=== PATIENT | female | born 1965 | race Caucasian/White ===

== ENCOUNTER 2024-04-28 08:37 | Emergency (ER) | payer OTHER, SELFPAY ==
[2024-04-28 09:15] VITALS: BP 123/85; PULSE 86; RESP 19; TEMP 36.8; O2SAT 99; BMI 27.3
--- NOTE | 2024-04-28 09:27 | ED_ITS ---
Discharge Plan Disposition Patient Disposition: Home, Self-Care Condition: Good Prescriptions Prescriptions: New methylprednisolone [Medrol (Ramiro)] 4 mg tablets,dose pack See Rx Instructions .Route .COMPLEX 6 Days Qty: 21 0RF Rx Instructions: taper pack; amoxicillin-pot clavulanate 875-125 mg Tablet 1 tab PO Q12H Qty: 20 0RF No Action meclizine 12.5 mg tablet 12.5 mg PO BID PRN (Reason: dizziness) 7 Days Qty: 14 0RF lisinopril 10 MG tablet 10 mg PO DAILY Referrals Follow up/Referrals: Martinez Matthews MD [Primary Care Provider] - See instructions Activity Restrictions/Add. Instructions Additional Instructions/Restrictions: Start oral steriods and antibiotic tomorrow you was given injection for your first dose Return if needed Straight to ER if any life threatening symptoms Clinical Impressions Clinical Impression: Sinusitis Qualifiers: Sinusitis location: unspecified location Chronicity: unspecified Qualified Code(s): J32.9 - Chronic sinusitis, unspecified Instructions Patient Instructions: Sinusitis, DI for Sinusitis Print Language Print Language: [place]gu[place] Discharge ED Provider: Emelina Rhodes [facility] General Stated complaint: congestion, headache Time Seen by Provider: 04/28/24 09:29 History of Present Illness Provider Complaint: Patient states that she thinks she has a bad sinus infection States that she has been having sinus congestion and pressure, pressure behind her eyes and even her teeth hurt for several weeks that has not got any better States today when it was still bothering her she came in to get checked Related Data Home Medications ?Medication ?Instructions ?Recorded ?Confirmed lisinopril 10 mg tablet 10 mg PO DAILY htn 03/01/18 04/20/20 Previous Rx's ?Medication ?Instructions ?Recorded meclizine 12.5 mg tablet 12.5 mg PO BID PRN dizziness 7 04/20/20 days #14 tabs amoxicillin 875 mg-potassium 1 tab PO Q12H #20 tabs 04/28/24 clavulanate 125 mg tablet methylprednisolone 4 mg tablets in See Rx Instructions .Route 04/28/24 a dose pack (Medrol (Ramiro)) .COMPLEX 6 days #21 tabs Allergies Allergy/AdvReac Type Severity Reaction Status Date / Time No Known Allergies Allergy Verified 04/20/20 11:42 [facility] Disclaimer: The information contained in this section may have been updated after the patient was seen, as this information can be updated by other users. Social History Smoking Status: Never smoker alcohol intake: current alcohol intake frequency: holidays/special occasions only substance use type: denies use current occupational status: employed Travel in the last 8 weeks: None Have you lived/traveled outside [place] in past 30 days?: No Contact w/someone who lives/traveled outside [place] past 30 days?: No Exposure to someone with infectious disease in past 14 days?: No Do you have a fever (greater than 100.4 F or 38 C)?: No Have you tested positive for COVID-19: No Exposed to someone with COVID-19 in past 14 days?: No Do you have a sore throat?: No Do you have a cough?: No Do you have any weakness?: No Do you have any diarrhea?: No Are you experiencing any unusual bleeding?: No Do you have any muscle aches/pain?: No Do you have any abdominal pain?: No Are you experiencing loss of taste or smell?: No ROS Obtained: Yes All systems reviewed & no additional complaints except as documented and Yes Systems reviewed as appropriate & no additional complaints except as documented Constitutional Constitutional: Reports system reviewed and no additional complaints, except as documented, Reports as per HPI and Reports headache(s) ENT Ears, Nose, Mouth, and Throat: Reports system reviewed and no additional complaints, except as documented, Reports as per HPI, Reports headache(s), Reports sinus pain and Reports sinus pressure Cardiovascular Cardiovascular: Reports system reviewed and no additional complaints, except as documented and Reports as per HPI Respiratory Respiratory: Reports system reviewed and no additional complaints, except as documented and Reports as per HPI Gastrointestinal Gastrointestingal: Reports system reviewed and no additional complaints, except as documented and as per HPI Neurologic Neurologic: Reports headache(s) Physical Exam General General appearance: alert and in no apparent distress ENT ENT exam: Present mucous membranes moist Expanded ENT Exam Nose exam: Present sinus tenderness Throat exam: Present other (PND noted) Respiratory Respiratory exam: Present normal lung sounds bilaterally; Absent respiratory distress or wheezes Cardiovascular Cardiovascular exam: Present regular rate, normal rhythm and normal heart sounds Abdominal Exam Abdominal exam: Present soft and normal bowel sounds; Absent distention or tenderness Neurological Exam Neurological exam: Present alert, oriented X3 and normal gait Medical Decision Making Medical Records Screening: Per USPSTF and CDC recommendations, given the prevalence of disease in our region, it is our hospital?s policy to screen for HIV and viral Hepatitis for all patients aged 18 and over and those with ongoing risk factors. Rajesh Inquiry Pt receiving controlled substance: No Rajesh was queried for this patient: No
[2024-04-28] MEDS: cefTRIAXone 1GM VIAL 1 GM IM (09:45)
[2024-04-28] MEDS: LIDOCAINE 1% 5ML PF VIAL IM (09:45)
[2024-04-28] MEDS: METHYLPREDNISOLONE SOD SUCC 125MG VIAL 125 MG IM (09:45)
[2024-04-28 10:00] VITALS: BP 123/85; PULSE 86; RESP 19; TEMP 36.8; O2SAT 99
== END 2024-04-28 10:02 | disposition home or self-care (01) ==
PROVIDERS: Emergency Provider Nurse Practitioner; PCP Family Medicine
DX: J32.9 Chronic sinusitis, unspecified (principal)
CPT/HCPCS: 96372; 99213; G0381; J0696; J2919